=== PATIENT | male | born 1985 | race Caucasian/White ===

== ENCOUNTER 2018-02-24 01:00 | Inpatient (IN) | payer OTHER ==
[~2018-02-24] VITALS: Ht 185.4 cm; Wt 93.0 kg
[2018-02-24 01:21] VITALS: Ht 185.4 cm; Wt 93.0 kg
[2018-02-24 01:46] LABS: CALCIUM 9.1 mg/dL (8.5-10.1); CARBON DIOXIDE 19.2 mmol/L (21-32); CHLORIDE SERUM 102 mmol/L (98-107); CREATININE SERUM 1.8 mg/dL (0.7-1.3); GFR1 47 mL/min; GLUCOSE SERUM 166 mg/dL (74-106); POTASSIUM SERUM 3.2 mmol/L (3.5-5.1); SODIUM SERUM 141 mmol/L (136-145)
[2018-02-24 01:48] LABS: BASOPHIL % 1.6 % (0-2); PLATELET COUNT 361 x10^3mcL (130-400); RED CELL DISTRIBUTION WIDTH 12.6 % (11.5-14.5)
[2018-02-24 01:51] LABS: ALBUMIN 4.6 g/dL (3.4-5.0); ALKALINE PHOSPHATASE 82 U/L (46-116); ALT/SGPT 81 U/L (16-63); AST/SGOT 38 U/L (15-37); BILIRUBIN TOTAL 0.43 mg/dL (0.20-1.00); CHOLESTEROL 193 mg/dL (<200); TOTAL PROTEIN, SERUM 8.1 g/dL (6.4-8.2)
[2018-02-24] MEDS ORDERED: DEPAKOTE500 MG PO (04:11)
[2018-02-24] MEDS ORDERED: ATIVAN1 MG PO (04:11)
[2018-02-24] MEDS ORDERED: ZYPREXA5 M1 PO (04:11)
[2018-02-24 04:17] LABS: AMPHETAMINE QUAL UR NONE DETECTED (See below)
[2018-02-24 05:16] VITALS: BP 146/98
[2018-02-24 05:56] VITALS: BP 146/98
[2018-02-24 08:45] VITALS: BP 138/103
[2018-02-24 18:21] VITALS: BP 150/101
[2018-02-24 21:03] VITALS: BP 132/95
[2018-02-25 05:15] VITALS: BP 140/101
[2018-02-25 09:24] VITALS: BP 135/94
[2018-02-25 17:14] VITALS: BP 142/94
[2018-02-25 18:56] VITALS: BP 142/94
[2018-02-25 19:49] VITALS: BP 138/96
== END 2018-02-25 20:53 | DRG 885 ==
LOC: ED 01:00 → MU 04:06
PROVIDERS: Specialist
DX: F31.30 Bipolar disorder, current episode depressed, mild or moderate severity, unspecified (principal); R45.851 Suicidal ideations; R45.1 Restlessness and agitation; I10 Essential (primary) hypertension; Z23 Encounter for immunization
CPT/HCPCS: 90658; G0480; J3480; J3490; J7030